=== PATIENT | male | born 1970 | race African-American/Black ===

== ENCOUNTER 2016-10-05 13:58 | Emergency (ER) | payer OTHER ==
[2016-10-05] MEDS ORDERED: SODIUM CHLORIDE 0.9% 1,000 ML ONE (15:29)
[2016-10-05] MEDS ORDERED: ALBUTEROL/IPRATROPIUM 2.5/0.5 MG 3 ML/EACH DOSE ONE (15:43)
[2016-10-05] MEDS ORDERED: DIAZEPAM 5 MG TABLET ONE (15:54)
[2016-10-05 16:02] LABS: ABSOLUTE NEUTROPHIL COUNT 7.8 K/mm3 (1.8-7.7); BASO # 0.1 K/mm3 (0.0-0.2); BASO % 0.5 % (0.2-1.0); EOS # 0.1 (0.0-0.5); EOS % 0.6 % (0.9-2.9); HEMOGLOBIN 16.6 gm/l (14.0-18.0); IMM NEUT% 0.2 % (0-1); LYMPH # 1.9 (1.0-4.8); LYMPH % 18.5 % (15-45); MEAN CELL VOLUME 87.9 fl (80.0-94.0); MEAN CORPUSCULAR HEMOGLOBIN 30.4 pg (27.0-31.0); MEAN CORPUSCULAR HGB CONC 34.6 g/dl (33.0-37.0); MEAN PLATELET VOLUME 10.1 fl (7.4-10.4); MONO # 0.6 (0.0-0.8); MONO % 5.4 % (4-12); NEUT % 74.8 % (43-75); PLATELET COUNT 281 K/mm3 (130-400); RED CELL DISTRIBUTION WIDTH 12.1 % (11.5-14.5)
[2016-10-05 16:23] LABS: ALB/GLOB RATIO 1.2 (>1.0); ALBUMIN 4.5 gm/dL (3.5-5.7)
--- NOTE | 2016-10-05 16:47 | RAD ---
Name: TY DIAMOND Exam: Two-view chest Comparison: 12/16/2015 Clinical history: Chest pressure and cough Findings: 2 views of the chest are submitted. The heart mediastinum and hilar structures are within normal limits. There is no failure, infiltrate, pleural effusion or pneumothorax. Regional skeleton is within normal limits. Impression: No acute cardiopulmonary process
== END 2016-10-05 17:30 | disposition home or self-care (01) ==
LOC: ED 13:58
DX: J01.90 Acute sinusitis, unspecified (principal); I10 Essential (primary) hypertension; G89.29 Other chronic pain; M54.9 Dorsalgia, unspecified
CPT/HCPCS: 85025; 80053; 71020; 87804; 94640; 99284; 96360; 99283; A9270; J7030